=== PATIENT | male | born 1980 | race African-American/Black ===

== ENCOUNTER 2016-10-20 03:59 | Emergency (ER) | payer OTHER ==
[~2016-10-20] VITALS: Ht 172.7 cm; Wt 131.5 kg
[~2016-10-20 03:59] MED LIST: PERCOCET 325 MG1 TA2 PO
--- NOTE | 2016-10-20 04:23 | ED ANKLE/FOOT INJURY COMPLAINT ---
History of Present Illness General Chief Complaint: Foot or Ankle Injury Stated Complaint: ? RT FOOT/ANKLE Source: patient, family Exam Limitations: no limitations Vital Signs & Intake/Output Vital Signs & Intake/Output Vital Signs Date Time Temp Pulse Resp B/P B/P Pulse O2 O2 Flow FiO2 Mean Ox Delivery Rate 10/20 0410 97.7 75 16 150/94 95 Room Air Allergies Coded Allergies: NO KNOWN ALLERGIES (06/11/12) Reconcile Medications OXYCODONE HCL/ACETAMINOPHEN (Percocet 5-325 MG Tablet) 325 MG/5 MG TAB 1-2 TAB PO Q4-6 PRN PRN PAIN Triage Note: PT TO ED FOR R SIDED FOOT/ANKLE PAIN WORSENING THROUGHOUT THE NIGHT. NO KNOWN INJURY. 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 Triage Nurses Notes Reviewed? yes HPI: Patient is just gotten back in the running and he also teaches different exercise classes. Patient got home from work last night and noticed a little discomfort in the anterior aspect of his right ankle. Patient didn't think too much of it and then went to bed. This morning he woke up over the bathroom and he had increased pain in the anterior aspect of his right ankle. Patient found that he was limping. Patient came in for evaluation. The pain is throbbing in nature and increases with ambulation. There is no radiation. He rates the pain as 6 out of 10. Past History Travel History Traveled to [place] past 21 day No Medical History Any Pertinent Medical History? none Neurological: NONE EENT: NONE Cardiovascular: NONE, "I've been told that my blood pressures runs high" Respiratory: NONE Gastrointestinal: NONE Hepatic: NONE Renal: NONE Musculoskeletal: NONE Psychiatric: NONE Endocrine: NONE Blood Disorders: NONE Cancer(s): NONE TRANSPORTER DRIVER/Reproductive: NONE Surgical History Surgical History: NONE Psychosocial History What is your primary language Wolof Tobacco Use: Never used ETOH Use: occasional use Illicit Drug Use: denies illicit drug use Family History Hx Contributory? No Review of Systems Review of Systems Constitutional: Reports: no symptoms. Respiratory: Reports: no symptoms. Cardiovascular: Reports: no symptoms. Musculoskeletal: Reports: see HPI, joint pain. Neurological/Psychological: Reports: no symptoms. Immunologic/Allergic: Reports: no symptoms. Physical Exam Physical Exam General Appearance: well developed/nourished, alert, awake, mild distress Head: atraumatic, normal appearance Eyes: Bilateral: PERRL, EOMI. Neck: normal inspection, supple, full range of motion Leg/Knee/Thigh Left: normal range of motion, normal inspection Ankle Right: normal inspection, normal range of motion, soft tissue tenderness Foot Right: normal inspection, normal range of motion Neuro/Vascular: normal motor function, normal sensation Progress Differential Diagnosis: fracture, sprain, contusion Plan of Care: Orders Procedure Date/time Status Durable Medical Equipment 10/20 453 Active Diagnostic Imaging: Viewed by Me: Radiology Read. Discussed w/RAD: Radiology Read. Radiology Impression: PATIENT: PRIETO DELEON PRESENT AGE: 36 PATIENT ACCOUNT NO: [id number] : 80 LOCATION: [facility] ORDERING PHYSICIAN: CHULA ELIZABETH MD SERVICE DATE: 10/20/16 EXAM TYPE: RAD - XRY-ANKLE 3 OR MORE VIEWS R EXAMINATION: XR ANKLE, RIGHT CLINICAL INFORMATION: Pain COMPARISON: None TECHNIQUE: AP, lateral, and mortise views of the right ankle. FINDINGS: No fracture or dislocation. The ankle mortise is congruent. The soft tissues are unremarkable. No ankle joint effusion. IMPRESSION: Unremarkable right ankle radiographs. DICTATED BY: SUJATHA VELEZ MD DATE/TIME DICTATED:10/20/16442 PRODUCT SUPPORT ENGINEER:VINAY DATE/TIME TRANSCRIBED:10/20/16442 CONFIDENTIAL, DO NOT COPY WITHOUT APPROPRIATE AUTHORIZATION. <Electronically signed in Other Vendor System> SIGNED BY: ROSIE CARD,SUJATHA 10/20/16447 Departure Departure Disposition: HOME OR SELF CARE Condition: Stable Clinical Impression Primary Impression: Right ankle sprain Referrals: ALEXEI BACON DO (PCP/Family) RAMON MA MD Additional Instructions: RETURN IF SYMPTOMS WORSEN OR FOR ANY CONCERNS Departure Forms: Customer Survey General Discharge Information Procedures Splinting Location: RIGHT ANKLE Manual Alignment Performed: No Pre-Made Type: BOOT Splint: posterior walking Splint Applied By: splint applied by other Pre-Proc Neuro Vasc Exam: normal Post-Proc Neuro Vasc Exam: normal
--- NOTE | 2016-10-20 04:48 | RADIOLOGY REPORT ---
EXAMINATION: XR ANKLE, RIGHT CLINICAL INFORMATION: Pain COMPARISON: None TECHNIQUE: AP, lateral, and mortise views of the right ankle. FINDINGS: No fracture or dislocation. The ankle mortise is congruent. The soft tissues are unremarkable. No ankle joint effusion. IMPRESSION: Unremarkable right ankle radiographs.
[2016-10-20 05:14] VITALS: BP 144/90
== END 2016-10-20 05:14 ==
LOC: ERH 03:59
DX: S93.401A Sprain of unspecified ligament of right ankle, initial encounter (principal); X58.XXXA Exposure to other specified factors, initial encounter; Y93.02 Activity, running; Y92.9 Unspecified place or not applicable
CPT/HCPCS: 73610-RT